=== PATIENT | male | born 1955 | race Caucasian/White ===

== ENCOUNTER 2022-09-30 18:09 | Inpatient (IN) | payer BC ==
[~2022-09-30 18:09] MED LIST: Iopamidol-370 76% 500 ML 1 ML ONE
[2022-09-30 19:37] LABS: #Eosinphils 0.1 thou/uL (0.0-0.7); #Lymphocytes 2.1 thou/uL (1.20-3.40); #Monocytes 0.6 thou/uL (0.11-0.59); #Neutrophils 6.2 thou/uL (1.40-6.50); %Basophils 0.2 % (0.0-1.0); %Eosinophils 1.2 % (0.0-10.0); %Lymphocytes 23.3 % (21.0-51.0); %Monocytes 6.3 % (0.0-10.0); Hemoglobin 13.2 g/dL (14.0-18.0); Mean Corpuscular HGB CONC 34.5 g/dL (32.0-36.0); Mean Corpuscular Hemoglobin 31.4 pg (27.0-31.0); Mean Corpuscular Volume 90.8 fl (78.0-98.0); Mean Platelet Volume 7.7 fL (7.4-10.4); Platelet Count 265 10x3/uL (130-400); RBC Distribution Width 13.4 % (11.5-14.5); Red Blood Cell (RBC) Count 4.19 mill/uL (4.70-6.10)
[2022-09-30 19:48] LABS: INR-International Normal Ratio 1.1; PTT 29.3 sec (22.9-36.1); Prothrombin Time 14.6 sec (12.0-14.7)
[2022-09-30] MEDS ORDERED: GoLYTELY 4,000 ml Bottle PO SCH (20:15)
[2022-09-30 20:57] LABS: Albumin 3.6 g/dL (3.4-4.8)
[2022-09-30 20:58] LABS: Chloride 108 mmol/L (98-107); Potassium 4.1 mmol/L (3.5-5.1); Sodium 138 mmol/L (136-145)
[2022-09-30 20:59] LABS: Calcium 8.2 mg/dL (7.8-10.44)
[2022-09-30 21:00] LABS: Glucose 110 mg/dL (80-115); Protein, Total 5.6 g/dL (5.8-8.1)
[2022-09-30 21:01] LABS: Anion Gap 12 mmol/L (10-20); Carbon Dioxide 22 mmol/L (23-31)
[2022-09-30 21:02] LABS: Alkaline Phosphatase 54 U/L (40-110); Bilirubin, Total 0.4 mg/dL (0.2-1.2)
[2022-09-30 21:03] LABS: Calc. Creatinine Clearance 0 mL/min (70-130); Estimated GFR 95
[2022-09-30 21:04] LABS: BUN (Urea Nitrogen) 15 mg/dL (8.4-25.7)
[2022-09-30 21:05] LABS: AST (SGOT) 13 U/L (5-34)
[2022-09-30 21:06] LABS: ALT (SGPT) 23 U/L (8-55)
[2022-09-30] MEDS ORDERED: Ondansetron PF 4 MG/2 ML Vial IVP PRN (21:57)
[2022-09-30] MEDS ORDERED: Acetaminophen 325 MG TAB PO PRN (21:57)
[2022-09-30 23:10] LABS: Hemoglobin 11.6 g/dL (14.0-18.0)
[2022-10-01] MEDS: Sodium Chloride 0.9% 1,000 ML IV SCH ×2 (00:38→11:30)
[2022-10-01 03:44] VITALS: TEMP 98
[2022-10-01 03:54] VITALS: BMI 41.3
[2022-10-01 05:19] LABS: SARS-CoV-2 NAA Rapid Test Not Detected (NotDetected)
[2022-10-01 06:24] LABS: #Eosinphils 0.1 thou/uL (0.0-0.7); #Lymphocytes 2.3 thou/uL (1.20-3.40); #Monocytes 0.5 thou/uL (0.11-0.59); #Neutrophils 4.9 thou/uL (1.40-6.50); %Basophils 0.2 % (0.0-1.0); %Eosinophils 1.8 % (0.0-10.0); %Lymphocytes 29.2 % (21.0-51.0); %Monocytes 6.7 % (0.0-10.0); %Neutrophils 62.1 % (42.0-75.0); Mean Corpuscular HGB CONC 33.2 g/dL (32.0-36.0); Mean Corpuscular Hemoglobin 30.6 pg (27.0-31.0); Mean Corpuscular Volume 92.1 fl (78.0-98.0); Mean Platelet Volume 7.1 fL (7.4-10.4); Platelet Count 249 10x3/uL (130-400); RBC Distribution Width 13.5 % (11.5-14.5); Red Blood Cell (RBC) Count 3.61 mill/uL (4.70-6.10); White Blood Cell (WBC) Count 7.9 10x3/uL (4.8-10.8)
[2022-10-01 06:48] LABS: Anion Gap 10 mmol/L (10-20); BUN (Urea Nitrogen) 11 mg/dL (8.4-25.7); Calc. Creatinine Clearance 170 mL/min (70-130); Calcium 7.8 mg/dL (7.8-10.44); Carbon Dioxide 24 mmol/L (23-31); Chloride 111 mmol/L (98-107); Estimated GFR 99; Glucose 97 mg/dL (80-115); Potassium 3.6 mmol/L (3.5-5.1); Sodium 141 mmol/L (136-145)
[2022-10-01] MEDS ORDERED: PROPOFOL 200 MG/20 ML VIAL ONE (08:39)
[2022-10-01] MEDS ORDERED: Venlafaxine HCl XR 150 MG CAP PO SCH (09:00)
[2022-10-01 11:27] LABS: Hemoglobin 10.8 g/dL (14.0-18.0)
== END 2022-10-01 13:55 | disposition home or self-care (01) | DRG 920 ==
LOC: ERS 18:09 → ERHOLD 21:46 → IMCU/EMU 10-01 03:48
PROVIDERS: ADMIT Internal Medicine; ATTEND Internal Medicine
PROC: 0W3P8ZZ Control Bleeding in Gastrointestinal Tract, Via Natural or Artificial Opening Endoscopic (ICD-10-PCS; principal; 2022-10-01)
PROC: 0DBP8ZZ Excision of Rectum, Via Natural or Artificial Opening Endoscopic (ICD-10-PCS; 2022-10-01)
DX: K91.840 Postprocedural hemorrhage of a digestive system organ or structure following a digestive system procedure (principal); C64.2 Malignant neoplasm of left kidney, except renal pelvis; D62 Acute posthemorrhagic anemia; K63.3 Ulcer of intestine; Z20.822 Contact with and (suspected) exposure to COVID-19; K21.9 Gastro-esophageal reflux disease without esophagitis; N40.0 Benign prostatic hyperplasia without lower urinary tract symptoms; I10 Essential (primary) hypertension; E78.5 Hyperlipidemia, unspecified; F32.A Depression, unspecified; K57.30 Diverticulosis of large intestine without perforation or abscess without bleeding; K64.8 Other hemorrhoids; K62.1 Rectal polyp; Y83.8 Other surgical procedures as the cause of abnormal reaction of the patient, or of later complication, without mention of misadventure at the time of the procedure; Z86.010 Personal history of colon polyps; Z80.0 Family history of malignant neoplasm of digestive organs; Z79.899 Other long term (current) drug therapy
CPT/HCPCS: 36415; 74177; 80048; 80053; 84484; 85025; 85610; 85730; 86850; 86900; 86901; 88305; 93005; C1776; J2704; J7050; Q9967; U0002

== ENCOUNTER 2025-10-16 09:23 | Outpatient (CLI) | payer BC, MEDICARE | END 2025-10-16 09:24 | disposition home or self-care (01) | LOC: SCSMRI 09:23 | PROVIDERS: ATTEND Specialist | DX: R97.20 Elevated prostate specific antigen [PSA] (principal) | CPT/HCPCS: 72197 ==